=== PATIENT | male | born 1960 | race Caucasian/White ===

== ENCOUNTER 2019-12-01 10:19 | Emergency (ER) | payer MEDICARE, MEDICAID ==
[~2019-12-01] VITALS: Ht 170.2 cm; Wt 81.8 kg
[~2019-12-01 10:19] MED LIST: hydroxyzine; seroquel
[2019-12-01 10:21] VITALS: BP 114/75
[2019-12-01 11:05] LABS: CLARITY,URINE SLIGHTLY CLOUDY (Clear); COLOR,URINE YELLOW (Yellow); GLUCOSE, URINE NEGATIVE (Neg); KETONES,URINE NEGATIVE (Neg); LEUKOCYTE ESTERASE ,URINE MODERATE (Neg); NITRITES, URINE POSITIVE (Neg); OCCULT BLOOD,URINE TRACE-INTACT (Neg); PROTEIN,URINE NEGATIVE (Neg); UROBILINOGEN,URINE 0.2 E.U/dL (0.2-1.0)
[2019-12-01 11:20] LABS: UA COLLECTION TYPE CLN CATCH MIDSTREAM
[2019-12-01 11:28] LABS: BACTERIA,URINE 3+ /HPF (Neg); MUCUS STRANDS FEW /LPF (Neg); RBC,URINE 0-2 /HPF (0-2); SQUAMOUS EPITHELIAL CELL,UR MODERATE /LPF (FEW); WBC CLUMPS,URINE FEW /HPF (NEGATIVE); WBC,URINE 20-30 /HPF (0-4)
[2019-12-01] MEDS ORDERED: aspirin 81mg tab.chew PO ONE (11:35)
[2019-12-01] MEDS ORDERED: CEPH250T PO (11:48)
[2019-12-01] MEDS ORDERED: cephalexin 500mg capsule PO ONE (11:50)
== END 2019-12-01 12:16 | disposition home or self-care (01) ==
LOC: ER 10:19
DX: N39.0 Urinary tract infection, site not specified (principal); R20.0 Anesthesia of skin; F20.9 Schizophrenia, unspecified; Z88.8 Allergy status to other drugs, medicaments and biological substances
CPT/HCPCS: 81001; 87077; 87088; 87186; 99283

== ENCOUNTER 2019-12-07 13:51 | Emergency (ER) | payer MEDICARE, MEDICAID ==
[~2019-12-07] VITALS: Ht 170.2 cm; Wt 81.1 kg
[~2019-12-07 13:51] MED LIST changes: +CEPH250T PO
[2019-12-07] MEDS ORDERED: normal saline 1000ML IV soln IV ONE (14:40)
[2019-12-07] MEDS ORDERED: CefTRIAXone 2gm/D5W 50ml 50 ML IV ONE (14:40)
[2019-12-07 14:54] LABS: CLARITY,URINE SLIGHTLY CLOUDY (Clear); COLOR,URINE YELLOW (Yellow); GLUCOSE, URINE NEGATIVE (Neg); KETONES,URINE >=80 mg/dl (Neg); LEUKOCYTE ESTERASE ,URINE LARGE (Neg); NITRITES, URINE NEGATIVE (Neg); OCCULT BLOOD,URINE TRACE-INTACT (Neg); PROTEIN,URINE NEGATIVE (Neg); UROBILINOGEN,URINE 0.2 E.U/dL (0.2-1.0)
[2019-12-07 14:55] LABS: UA COLLECTION TYPE CLN CATCH MIDSTREAM
[2019-12-07 14:56] LABS: URINE AMPHETAMINE SCREEN NEGATIVE (Neg); URINE BARBITUATE SCREEN NEGATIVE (Neg); URINE BENZODIAZEPINES SCREEN NEGATIVE (Neg); URINE CANNABINOID SCREEN POSITIVE (Neg); URINE COCAINE SCREEN NEGATIVE (Neg); URINE METHADONE SCREEN NEGATIVE (Neg); URINE OPIATE SCREEN NEGATIVE (Neg); URINE PHENCYCLIDINE SCREEN NEGATIVE (Neg)
[2019-12-07 14:59] LABS: MUCUS STRANDS MODERATE /LPF (Neg); SQUAMOUS EPITHELIAL CELL,UR MODERATE /LPF (FEW)
[2019-12-07 15:00] LABS: BACTERIA,URINE 2+ /HPF (Neg); RBC,URINE 0-2 /HPF (0-2); WBC,URINE TNTC /HPF (0-4)
[2019-12-07 15:26] LABS: BASOPHILS # (AUTO) 0.1 X10'3 (0-0.2); BASOPHILS % (AUTO) 0.6 % (0-1); EOSINOPHILS # (AUTO) 0.1 X10'3 (0-0.9); EOSINOPHILS % (AUTO) 0.9 % (0-6); HEMATOCRIT 41.4 % (42.0-52.0); HEMOGLOBIN 13.9 g/dl (14.0-17.9); LYMPHOCYTES # (AUTO) 2.4 X10'3 (1.1-4.8); LYMPHOCYTES % (AUTO) 25.6 % (21-51); MEAN CORPUSCULAR HEMOGLOBIN 30.6 PG (27.0-31.0); MEAN CORPUSCULAR HGB CONC 33.7 g/dL (33.0-36.5); MEAN CORPUSCULAR VOLUME 90.9 FL (78-98); MEAN PLATELET VOLUME 7.9 FL (7.4-10.4); MONOCYTES # (AUTO) 0.7 X10'3 (0-0.9); NEUTROPHILS # (AUTO) 6.3 X10'3 (1.8-7.7); NEUTROPHILS % (AUTO) 65.9 % (42-75); PLATELET COUNT 381 X10'3 (140-440); RED BLOOD COUNT 4.55 X10'6 (4.70-6.10); RED CELL DISTRIBUTION WIDTH 14.5 % (11.5-14.5); WHITE BLOOD COUNT 9.6 X10'3 (4.5-11.0)
[2019-12-07] MEDS ORDERED: HYDROcodone/acetaminophen 5mg/325mg tablet PO ONE (15:35)
--- NOTE | 2019-12-07 15:38 | NUR ---
Medicated for lower abd. pain. Getting IV fluids. Warm blankets provided.
[2019-12-07 15:41] LABS: ALANINE AMINOTRANSFERASE 40 U/L (12-78); ALBUMIN 3.6 G/DL (3.4-5.0); ALBUMIN/GLOBULIN RATIO 0.8 (1.1-1.5); ALKALINE PHOSPHATASE 108 IU/L (46-116); ANION GAP 15 (8-16); ASPARTATE AMINO TRANSFERASE 30 U/L (10-37); BILIRUBIN,TOTAL 0.5 MG/DL (0.1-1.0); BLOOD UREA NITROGEN 10 MG/DL (7-18); CALCIUM 8.9 MG/DL (8.5-10.1); CHLORIDE 101 MMOL/L (99-107); CREATININE 0.83 MG/DL (0.60-1.10); GLUCOSE 170 MG/DL (70-104); POTASSIUM 3.7 MMOL/L (3.5-5.1); SODIUM 139 MMOL/L (135-145); TOTAL CARBON DIOXIDE 23.5 MMOL/L (24-32); TOTAL PROTEIN 8.2 G/DL (6.4-8.2); eGFR > 90 ML/MIN
[2019-12-07 15:51] LABS: ETHANOL < 0.010 GM/DL (0.0-0.010)
--- NOTE | 2019-12-07 18:36 | NUR ---
report given to Briseyda LAWLER
[2019-12-07] MEDS ORDERED: risperiDONE 2mg tablet PO SCH ×2 (21:00→23:15)
[2019-12-07] MEDS ORDERED: mirtazapine 15mg tablet PO SCH ×2 (21:00→23:15)
--- NOTE | 2019-12-07 21:33 | NUR ---
report given to BUCKY Mclaughlin. pt now in [place]
[2019-12-07] MEDS ORDERED: REM30T PO (21:52)
[2019-12-07] MEDS ORDERED: RISP2TAB97 PO (21:52)
--- NOTE | 2019-12-07 22:00 | NUR ---
The patient was moved to bed 25 in the ER. He has been medically cleared and placed on a 5150 hold by [facility]. He stated that he is from the [place] area and he is now living in [place] and his homeless. He stated that he was last hospitalized in [place] one month ago. He stated that he has been off his pyschiatric medications for the past 3 days because he has been on the street. He reports auditory hallucinations telling him "to kill myself. I want to kill myself to make the voices stop...I don't know if I'm possessed with demons or what" His med rec was completed. His IV in his right wrist was discontinued.
[2019-12-07] MEDS ORDERED: acetaminophen 325mg tablet PO PRN (22:40)
--- NOTE | 2019-12-08 01:00 | NUR ---
The patient appears to be sleeping
--- NOTE | 2019-12-08 03:22 | NUR ---
The patient appears to be sleeping
[2019-12-08] MEDS: cephalexin 250mg capsule PO SCH ×2 (05:38→08:17)
--- NOTE | 2019-12-08 05:47 | NUR ---
The patient appears to be sleeping
[2019-12-08 05:52] VITALS: BP 107/71
--- NOTE | 2019-12-08 06:37 | NUR ---
sleeping in bed, laying on his left side, rr even and unlabored.
--- NOTE | 2019-12-08 08:46 | NUR ---
sat up at side of bed, ate breakfast quietly then layed back down. no needs at this time. took meds with no problem.
[2019-12-08] MEDS ORDERED: FLUT16SP2 BOTHNARES (10:35)
[2019-12-08] MEDS ORDERED: RISP0.5T3 PO (10:35)
[2019-12-08] MEDS ORDERED: FLO0.4C PO (10:35)
[2019-12-08] MEDS ORDERED: mirtazapine 15mg tablet PO SCH (21:00)
[2019-12-08] MEDS ORDERED: risperiDONE 2mg tablet PO SCH (21:00)
== END 2019-12-08 09:43 ==
LOC: ER 13:52
DX: R45.851 Suicidal ideations (principal); F29 Unspecified psychosis not due to a substance or known physiological condition; F20.9 Schizophrenia, unspecified; Z88.8 Allergy status to other drugs, medicaments and biological substances; Z79.2 Long term (current) use of antibiotics
CPT/HCPCS: 36415; 80053; 80305; 80320; 81001; 83605; 84145; 84443; 85025; 87040; 96365; 96366; 99285; J0696; J7030

== ENCOUNTER 2019-12-08 08:35 | Inpatient (IN) | payer MEDICARE, MEDICAID ==
[~2019-12-08] VITALS: Ht 170.2 cm; Wt 82.5 kg
[~2019-12-08 08:35] MED LIST changes: -CEPH250T PO; +REM30T PO; +RISP2TAB97 PO; -hydroxyzine; -seroquel
[2019-12-08] MEDS ORDERED: LORazepam 1 MG tablet PO PRN (09:10)
[2019-12-08] MEDS ORDERED: quetiapine 100mg tablet PO PRN (09:10)
[2019-12-08] MEDS ORDERED: acetaminophen 325mg tablet PO PRN (09:10)
[2019-12-08] MEDS ORDERED: loperamide 2mg capsule PO PRN (09:10)
[2019-12-08] MEDS ORDERED: mag hydrox/Alum hydrox/simeth 30ml oral suspension PO PRN (09:10)
[2019-12-08] MEDS ORDERED: NICOTINE POLACRILEX 2 MG LOZENGE BC PRN (09:10)
[2019-12-08] MEDS ORDERED: magnesium hydroxide 30ml (MOM) UD suspension PO PRN (09:10)
[2019-12-08] MEDS ORDERED: traZODone 50mg tablet PO PRN (09:10)
--- NOTE | 2019-12-08 09:15 | NUR ---
ADMIT NOTE: Patient brought up from ER to [facility] via W/C. Belongings were inventoried, skin check performed by 2 RN's. Patient states that he has a past history of cardiac stent, and has hepatitis C. Received pt in bed. Pt. is sleepy and is having a difficult time staying awake during 1:1. Patient states that he lives in a trailer and has become increasingly depressed and lonely. Patient has a long history of schizophrenia and the voice of his keeps telling him to stab himself. Patient states that he would rather than to listen the voice any longer. Patient complains of pain with urination, reports that his penis feels numb, has difficult time with urination and ends up dribbling on himself. Patient is on Keflex for UTI. Patient appears depressed with flat affect. Pt. tends to be withdrawn and isolates to his room. Addendum: 12/08/19 at 1625 by Leidy Weston RN Pt. complaining of pain, with oliguria. Bladder scanned pt for 267 ml of urine.
[2019-12-08] MEDS ORDERED: FLUT16SP2 BOTHNARES (10:35)
[2019-12-08] MEDS ORDERED: RISP0.5T3 PO (10:35)
[2019-12-08] MEDS ORDERED: FLO0.4C PO (10:35)
[2019-12-08 10:44] VITALS: BP 113/69
[2019-12-08] MEDS: cephalexin 250mg capsule PO SCH ×2 (14:09→20:21)
[2019-12-08] MEDS: acetaminophen 325mg tablet PO PRN (16:53)
[2019-12-08 20:00] VITALS: BP 126/78
[2019-12-08] MEDS: risperiDONE 2mg tablet PO SCH (20:21)
[2019-12-08] MEDS: mirtazapine 15mg tablet PO SCH (20:21)
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
[2019-12-09] MEDS: cephalexin 250mg capsule PO SCH ×4 (01:27→20:03)
[2019-12-09 07:10] VITALS: BP 128/83
[2019-12-09 07:13] LABS: CHOL/HDL RATIO 4.2 (0.00-4.99); CHOLESTEROL 164 MG/DL (0-200); HDL CHOLESTEROL 39 MG/DL (35-60); LDL CHOLESTEROL 101 MG/DL (50-100); TRIGLYCERIDES 61 MG/DL (20-135)
[2019-12-09 07:22] LABS: HEMOGLOBIN A1C 5.9 % (4.5-6.2)
[2019-12-09] MEDS: fluticasone nasal spray 16GM bottle NS SCH (08:00)
[2019-12-09] MEDS: tamsulosin 0.4mg capsule PO SCH (08:19)
[2019-12-09] MEDS: nicotine 21mg patch - 24 hr TD SCH (08:19)
[2019-12-09] MEDS: risperiDONE 0.5mg tablet PO SCH (08:19)
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
--- NOTE | 2019-12-09 15:15 | NUR ---
Nursing Progress Note: Legal hold: 5150 Client on an involuntary hold for being a danger to himself Why are they here: The patient is a 59 year old male who self presented to the ER with complaints of UTI symptoms and also told the MD he was having auditory hallucinations and was having suicidal thoughts. He was evaluated by [facility] and was placed on a 5150 hold for being a danger to himself. The patient has a long history of Schizophrenia and has prior inpatient hospitalizations with his most recent hospitalization being in [place] approximately one month ago. He recently relocated to [place], [place] in [facility] where he was living in a trailer on his son's property. He stated that the trailer had no running water or electricity. He began to have constant voices telling him to kill himself and he left the trailer in [place] and he ended up in [place] where he has been staying on the streets for the past 3 days with no long-term and off his psychiatric medications. He began to have increasing suicidal thoughts because he wanted the voices to stop. Assessment What has happened this shift: The patient was isolative to his bed. He appears older than his stated age. His affect was blunted. He was pleasant and cooperative. He stayed in his bed. Reports "numbness and burning" to his waist and mj area, Dr. Bell says he will order a lower back x-ray. pt denies any other physical symptoms or difficulty- able to void okay. reports constipation for no BM x 2 days. S/I, H/I: The patient reports suicidal thoughts to end the voices A/VH: Command auditory hallucinations ADL's: Disheveled Were meds taken: yes Any med S/E the patient denied Mental Status Exam Appearance: Appears disheveled and older than his stated age Eye contact: intermittent Behavior: Withdrawn and isolative Speech: monotone and minimal Mood: Depressed Affect: flat Thought process: difficult to fully assess 2nd to patient's minimal verbal responses but he is able to answer questions appropriately Thought Content: lack of housing, wanting to have the voices stop and wanted to kill himself to get rid of the voices Cognition: Alert, oriented to place, person Insight: Impaired Judgment: Impaired Interventions PRN's used: none Therapeutic interventions: One to one with the patient to assess severity of disordered thoughts and self harm risk. Educated to medications. Restraints/seclusion/emergency medication: NA Justification of Continued Inpatient Treatment: The patient continues to have auditory hallucinations that make him feel overwhelmed and suicidal. He is new to the area and lacks housing and person resources or a viable discharge plan.
[2019-12-09 19:00] VITALS: BP 110/79
[2019-12-09] MEDS: acetaminophen 325mg tablet PO PRN (19:22)
[2019-12-09] MEDS: risperiDONE 2mg tablet PO SCH (20:02)
[2019-12-09] MEDS: mirtazapine 15mg tablet PO SCH (20:03)
--- NOTE | 2019-12-10 02:26 | NUR ---
Nursing Progress Note: Legal hold: 5150 Client on an involuntary hold for DTS Report received from Jamia LAWLER with use of SBAR. Why are they here: The patient is a 59 year old male who self presented to the ER with complaints of UTI symptoms and also told the MD he was having auditory hallucinations and was having suicidal thoughts. He was evaluated by [facility] and was placed on a 5150 hold for being a danger to himself. The patient has a long history of Schizophrenia and has prior inpatient hospitalizations with his most recent hospitalization being in [place] approximately one month ago. He recently relocated to [place] in [facility] where he was living in a trailer on his son's property. He stated that the trailer had no running water or electricity. He began to have constant voices telling him to kill himself and he left the trailer in [place] and he ended up in [place] where he has been staying on the streets for the past 3 days with no halfway and off his psychiatric medications. He began to have increasing suicidal thoughts because he wanted the voices to stop. Assessment What has happened this shift: Patient laying in bed at the beginning of shift. Pleasant and cooperative with all care; compliant with medication. PRN Tylenol provided for ALMARAZ with positive effect. Denies SI, HI, A/VH this shift but endorses mild depression. He continues to endorse pain with urination; patient encouraged to drink water and he continues ABx with no ASE observed or reported. Patient was observed briefly sitting in group eating snack and watching a movie before going back to bed. S/I, H/I: Denies A/VH: Denies; does not appear internally preoccupied ADL's: Independent Were meds taken: Yes Any med S/E: None observed or reported Mental Status Exam Appearance: Disheveled, wearing green unit scrubs. Eye contact: Fair Behavior: Isolative Speech: Clear, steady rate/rhythm, soft tone, minimal Mood: Depressed Affect: Constricted Thought process: Linear Thought Content: Depression, UTI Cognition: Alert, oriented to place, person Insight: Fair Judgment: Poor Interventions PRN's used: Tylenol Therapeutic interventions: One to one with the patient to assess severity of disordered thoughts and self harm risk. Educated to medications. Restraints/seclusion/emergency medication: NA Justification of Continued Inpatient Treatment: The patient continues to have auditory hallucinations that make him feel overwhelmed and suicidal. He is new to the area and lacks housing and person resources or a viable discharge plan.
[2019-12-10] MEDS: cephalexin 250mg capsule PO SCH ×4 (03:00→20:03)
[2019-12-10 07:54] VITALS: BP 115/81
[2019-12-10] MEDS: tamsulosin 0.4mg capsule PO SCH (08:33)
[2019-12-10] MEDS: nicotine 21mg patch - 24 hr TD SCH (08:33)
[2019-12-10] MEDS: risperiDONE 0.5mg tablet PO SCH (08:33)
[2019-12-10] MEDS: fluticasone nasal spray 16GM bottle NS SCH (08:34)
--- NOTE | 2019-12-10 08:44 | NUR ---
[facility] REFERRAL Completed and faxed CR referral. Provided Gil with phone numbers to call [facility] and [facility] to change his [facility] to [place]. PETTY Fernandez
--- NOTE | 2019-12-10 17:32 | NUR ---
Nursing Progress Note: Legal hold: 5150 Client on an involuntary hold for DTS Report received from Cecilia Piper RN with use of SBAR. Why are they here: The patient is a 59 year old male who self presented to the ER with complaints of UTI symptoms and also told the MD he was having auditory hallucinations and was having suicidal thoughts. He was evaluated by [facility] and was placed on a 5150 hold for being a danger to himself. The patient has a long history of Schizophrenia and has prior inpatient hospitalizations with his most recent hospitalization being in [place] approximately one month ago. He recently relocated to [place] in [facility] where he was living in a trailer on his son's property. He stated that the trailer had no running water or electricity. He began to have constant voices telling him to kill himself and he left the trailer in [place] and he ended up in [place] where he has been staying on the streets for the past 3 days with no custodial and off his psychiatric medications. He began to have increasing suicidal thoughts because he wanted the voices to stop. Assessment What has happened this shift: Pt is up out with peers socializing most of the shift. He went outside with the group. He was observed sitting watching TV and talking to his peers in the community room. He assisted the Evon BENJAMIN w/switching his [facility] He talked about going to the [facility] at discharge. S/I, H/I: Denies A/VH: Denies ADL's: Independent Were meds taken: Yes Any med S/E: None observed or reported Mental Status Exam Appearance: Disheveled, wearing green unit scrubs. Eye contact: Fair Behavior: Observed out w/peers on the unit Speech: Clear, steady rate/rhythm, audible Mood: Euthymic Affect: Congruent w/mood Thought process: Linear Thought Content: Housing in the future Cognition: A/Ox4 Insight: Fair Judgment: Poor Interventions PRN's used: N/A Therapeutic interventions: Morning 1:1 assessment, provided therapeutic communication and active listening, medication administration/education/monitoring, encouraged to come out into the group and socialized, encouraged to shower, q 15min safety checks. Restraints/seclusion/emergency medication: NA Justification of Continued Inpatient Treatment: The patient continues to have auditory hallucinations that make him feel overwhelmed and suicidal. He is new to the area and lacks housing and person resources or a viable discharge plan.
[2019-12-10 19:00] VITALS: BP 112/81
[2019-12-10] MEDS: acetaminophen 325mg tablet PO PRN (19:15)
[2019-12-10] MEDS: risperiDONE 2mg tablet PO SCH (20:03)
[2019-12-10] MEDS: mirtazapine 15mg tablet PO SCH (20:03)
[2019-12-11] MEDS: cephalexin 250mg capsule PO SCH ×4 (03:06→21:26)
--- NOTE | 2019-12-11 04:56 | NUR ---
Nursing Progress Note: Legal hold: 5150 Client on an involuntary hold for DTS Report received from Jamia LAWLER with use of SBAR. Why are they here: The patient is a 59 year old male who self presented to the ER with complaints of UTI symptoms and also told the MD he was having auditory hallucinations and was having suicidal thoughts. He was evaluated by [facility] and was placed on a 5150 hold for being a danger to himself. The patient has a long history of Schizophrenia and has prior inpatient hospitalizations with his most recent hospitalization being in [place] approximately one month ago. He recently relocated to [place] in [facility] where he was living in a trailer on his son's property. He stated that the trailer had no running water or electricity. He began to have constant voices telling him to kill himself and he left the trailer in [place] and he ended up in [place] where he has been staying on the streets for the past 3 days with no nursing home and off his psychiatric medications. He began to have increasing suicidal thoughts because he wanted the voices to stop. Assessment What has happened this shift: Patient visible on the unit at the beginning of shift. Pleasant and cooperative with all care; compliant with medication. PRN Tylenol provided for ALMARAZ with positive effect. Patient reports continuing pain with urination r/t UTI. Patient remains on ABx with no ASE and encouraged by staff to drink plenty of fluids. Patient denies SI, HI, A/VH this shift. He reports possible discharge to [facility]. He participated in HS snack in the group room before going to bed. S/I, H/I: Denies A/VH: Denies; does not appear internally preoccupied ADL's: Independent Were meds taken: Yes Any med S/E: None observed or reported Mental Status Exam Appearance: Disheveled, wearing green unit scrubs. Eye contact: Fair Behavior: Watching TV, socializing with peers Speech: Clear, steady rate/rhythm, soft tone, minimal Mood: "OK" Affect: Constricted Thought process: Linear Thought Content: Possible d/c to [facility] Cognition: Alert, oriented to place, person Insight: Fair Judgment: Fair Interventions PRN's used: Tylenol Therapeutic interventions: One to one with the patient to assess severity of disordered thoughts and self harm risk. Educated to medications. Restraints/seclusion/emergency medication: NA Justification of Continued Inpatient Treatment: The patient continues to have auditory hallucinations that make him feel overwhelmed and suicidal. He is new to the area and lacks housing and person resources or a viable discharge plan.
[2019-12-11] MEDS: tamsulosin 0.4mg capsule PO SCH (07:37)
[2019-12-11] MEDS: risperiDONE 0.5mg tablet PO SCH (07:37)
[2019-12-11] MEDS: nicotine 21mg patch - 24 hr TD SCH (07:38)
[2019-12-11] MEDS: acetaminophen 325mg tablet PO PRN (07:38)
[2019-12-11 07:40] VITALS: BP 114/84
[2019-12-11] MEDS: fluticasone nasal spray 16GM bottle NS SCH (08:00)
--- NOTE | 2019-12-11 17:17 | NUR ---
Nursing Progress Note: Legal hold: 5150 Client on an involuntary hold for DTS Report received from Cecilia Piper RN with use of SBAR. Why are they here: The patient is a 59 year old male who self presented to the ER with complaints of UTI symptoms and also told the MD he was having auditory hallucinations and was having suicidal thoughts. He was evaluated by [facility] and was placed on a 5150 hold for being a danger to himself. The patient has a long history of Schizophrenia and has prior inpatient hospitalizations with his most recent hospitalization being in [place] approximately one month ago. He recently relocated to [place] in [facility] where he was living in a trailer on his son's property. He stated that the trailer had no running water or electricity. He began to have constant voices telling him to kill himself and he left the trailer in [place] and he ended up in [place] where he has been staying on the streets for the past 3 days with no alf and off his psychiatric medications. He began to have increasing suicidal thoughts because he wanted the voices to stop. Assessment What has happened this shift: Received pt. sleeping in bed. Pt. awakens for medications and breakfast. Pt complains of a headache and was given Tylenol with good effect. Pt. does complain of pain in his genital area from UTI, he states that it is slowly resolving. Pt. did attend group in the a.m. Patient is mostly concerned about going to [facility] upon discharge. S/I, H/I: Denies A/VH: Denies ADL's: Independent Were meds taken: Yes Any med S/E: None observed or reported Mental Status Exam Appearance: Disheveled, wearing green unit scrubs. Eye contact: Fair Behavior: Calm and cooperative. Speech: Clear, minimal. Mood: Euthymic Affect: Congruent w/mood Thought process: Linear Thought Content: Discharging to [facility]. Cognition: A/Ox4 Insight: Fair Judgment: Poor Interventions PRN's used: N/A Therapeutic interventions: Morning 1:1 assessment, provided therapeutic communication and active listening, medication administration/education/monitoring, encouraged to come out into the group and socialized, encouraged to shower, q 15min safety checks. Restraints/seclusion/emergency medication: NA Justification of Continued Inpatient Treatment: The patient continues to have auditory hallucinations that make him feel overwhelmed and suicidal. He is new to the area and lacks housing and person resources or a viable discharge plan.
[2019-12-11 20:00] VITALS: BP 100/66
[2019-12-11] MEDS: mirtazapine 15mg tablet PO SCH (21:26)
[2019-12-11] MEDS: risperiDONE 2mg tablet PO SCH (21:26)
[2019-12-12] MEDS: cephalexin 250mg capsule PO SCH ×4 (03:26→20:34)
--- NOTE | 2019-12-12 05:41 | NUR ---
Nursing Progress Note: Legal hold: VOL Client on an voluntary Report received from Jamia LAWLER with use of SBAR. Why are they here: The patient is a 59 year old male who self presented to the ER with complaints of UTI symptoms and also told the MD he was having auditory hallucinations and was having suicidal thoughts. He was evaluated by [facility] and was placed on a 5150 hold for being a danger to himself. The patient has a long history of Schizophrenia and has prior inpatient hospitalizations with his most recent hospitalization being in [place] approximately one month ago. He recently relocated to [place] in [facility] where he was living in a trailer on his son's property. He stated that the trailer had no running water or electricity. He began to have constant voices telling him to kill himself and he left the trailer in [place] and he ended up in [place] where he has been staying on the streets for the past 3 days with no intermediate and off his psychiatric medications. He began to have increasing suicidal thoughts because he wanted the voices to stop. Assessment What has happened this shift: Patient watching TV in group room at the beginning of shift. Pleasant and cooperative with all care, compliant with medication. Patient continues ABx for UTI and continues to endorse discomfort with urination. Patient reports drinking water throughout the day. He denies SI, HI, A/VH and does not appear to be responding to internal stimuli. He continues to look forward to possible D/C to [facility]. S/I, H/I: Denies A/VH: Denies; does not appear internally preoccupied ADL's: Independent Were meds taken: Yes Any med S/E: None observed or reported Mental Status Exam Appearance: Disheveled, wearing green unit scrubs. Eye contact: Fair Behavior: Watching TV, socializing with peers Speech: Clear, steady rate/rhythm, soft tone, minimal Mood: Euthymic Affect: Congruent Thought process: Linear Thought Content: Possible d/c to [facility] Cognition: Alert, oriented to place, person Insight: Fair Judgment: Fair Interventions PRN's used: None Therapeutic interventions: One to one with the patient to assess severity of disordered thoughts and self harm risk. Educated to medications. Restraints/seclusion/emergency medication: NA Justification of Continued Inpatient Treatment: The patient continues to have auditory hallucinations that make him feel overwhelmed and suicidal. He is new to the area and lacks housing and person resources or a viable discharge plan.
[2019-12-12 07:47] VITALS: BP 114/77
[2019-12-12] MEDS: risperiDONE 0.5mg tablet PO SCH (07:48)
[2019-12-12] MEDS: nicotine 21mg patch - 24 hr TD SCH (07:48)
[2019-12-12] MEDS: tamsulosin 0.4mg capsule PO SCH (07:48)
[2019-12-12] MEDS: acetaminophen 325mg tablet PO PRN ×2 (07:49→20:37)
[2019-12-12] MEDS: fluticasone nasal spray 16GM bottle NS SCH (07:50)
--- NOTE | 2019-12-12 10:24 | NUR ---
Initial: Pt admit w/ SI and schizophrenia PO 100% avg regular diet meeting needs. Receiving remeron. [facility] 12/08. No nutrition concerns at this time. Will continue to monitor. Rec: 1. continue regular diet 2. bowel care as needed 3. wt per rx Addendum: 12/12/19 at [address] Amended: Links added.
--- NOTE | 2019-12-12 17:41 | NUR ---
Nursing Progress Note: Legal hold: Voluntary Client on an involuntary hold for DTS Report received from RN with use of SBAR. Why are they here: The patient is a 59 year old male who self-presented to the ER with complaints of UTI symptoms and also told the MD he was having auditory hallucinations and was having suicidal thoughts. He was evaluated by [facility] and was placed on a 5150 hold for being a danger to himself. The patient has a long history of Schizophrenia and has prior inpatient hospitalizations with his most recent hospitalization being in [place] approximately one month ago. He recently relocated to [place], [place] in [facility] where he was living in a trailer on his son's property. He stated that the trailer had no running water or electricity. He began to have constant voices telling him to kill himself and he left the trailer in [place] and he ended up in [place] where he has been staying on the streets for the past 3 days with no mcc and off his psychiatric medications. He began to have increasing suicidal thoughts because he wanted the voices to stop. Assessment What has happened this shift: Received pt sleeping in bed at shift change. Patient reports that he normally has sinus headaches in the morning and took Tylenol and Flonase with good relief of symptoms. Patient continues to complain of pain with urination, discussed with Alva Martínez Pt. up in the group room most of the day, did walk the hallways for a short time. Patient is pleasant and cooperative with all care. Takes medications without incident. Patient is looking forward to possibly going to [facility]. S/I, H/I: Denies A/VH: Denies ADL's: Independent, needs prompting. Were meds taken: Yes Any med S/E: None observed or reported Mental Status Exam Appearance: Disheveled, wearing green unit scrubs. Eye contact: Fair Behavior: Calm and cooperative. Speech: Clear, minimal. Mood: Euthymic Affect: Congruent w/mood Thought process: Linear Thought Content: Discharging to CR. UTI pain. Cognition: A/Ox4 Insight: Fair Judgment: Poor Interventions PRN's used: N/A Therapeutic interventions: Morning 1:1 assessment, provided therapeutic communication and active listening, medication administration/education/monitoring, encouraged to come out into the group and socialized, encouraged to shower, q 15min safety checks. Restraints/seclusion/emergency medication: NA Justification of Continued Inpatient Treatment: The patient continues to have auditory hallucinations that make him feel overwhelmed and suicidal. He is new to the area and lacks housing and person resources or a viable discharge plan.
[2019-12-12 20:00] VITALS: BP 94/69
[2019-12-12] MEDS: risperiDONE 2mg tablet PO SCH (20:34)
[2019-12-12] MEDS: mirtazapine 15mg tablet PO SCH (20:34)
[2019-12-13] MEDS: cephalexin 250mg capsule PO SCH ×4 (02:30→20:10)
--- NOTE | 2019-12-13 05:02 | NUR ---
Nursing Progress Note: Legal hold: VOL Client on an voluntary Report received from Jamia LAWLER with use of SBAR. Why are they here: The patient is a 59 year old male who self presented to the ER with complaints of UTI symptoms and also told the MD he was having auditory hallucinations and was having suicidal thoughts. He was evaluated by [facility] and was placed on a 5150 hold for being a danger to himself. The patient has a long history of Schizophrenia and has prior inpatient hospitalizations with his most recent hospitalization being in [place] approximately one month ago. He recently relocated to [place], [place] in [facility] where he was living in a trailer on his son's property. He stated that the trailer had no running water or electricity. He began to have constant voices telling him to kill himself and he left the trailer in [place] and he ended up in [place] where he has been staying on the streets for the past 3 days with no care home and off his psychiatric medications. He began to have increasing suicidal thoughts because he wanted the voices to stop. Assessment What has happened this shift: Patient laying in bed at the beginning of shift and later observed on the unit. Pleasant and cooperative with all care; compliant with medication. PRN Tylenol provided for ALMARAZ with positive effect. Continues to c/o discomfort with urination adding "it feels strange," remains on PO ABx. Waiting on [facility] interview. S/I, H/I: Denies A/VH: Denies ADL's: Independent Were meds taken: Yes Any med S/E: None observed or reported Mental Status Exam Appearance: Disheveled, wearing green unit scrubs. Eye contact: Fair Behavior: Watching TV, socializing with peers Speech: Clear, steady rate/rhythm, soft tone, minimal Mood: Euthymic Affect: Congruent Thought process: Linear Thought Content: Continuing discomfort with urination Cognition: Alert, oriented to place, person Insight: Fair Judgment: Fair Interventions PRN's used: Tylenol Therapeutic interventions: One to one with the patient to assess severity of disordered thoughts and self harm risk. Educated to medications. Restraints/seclusion/emergency medication: NA Justification of Continued Inpatient Treatment: The patient continues to have auditory hallucinations that make him feel overwhelmed and suicidal. He is new to the area and lacks housing and person resources or a viable discharge plan.
[2019-12-13 07:50] VITALS: BP 101/71
[2019-12-13] MEDS: risperiDONE 0.5mg tablet PO SCH (08:33)
[2019-12-13] MEDS: tamsulosin 0.4mg capsule PO SCH (08:33)
[2019-12-13] MEDS: nicotine 21mg patch - 24 hr TD SCH (08:34)
[2019-12-13] MEDS: fluticasone nasal spray 16GM bottle NS SCH (09:45)
--- NOTE | 2019-12-13 14:11 | NUR ---
[facility] INTERVIEW Assisted Gil with [facility] interview with Kam via [employer]. Interview went well and he likely will be able to go to [facility] tomorrow. Cindy [facility], will confirm later today with film writer. Gil will need a chest x-ray to rule out TB as it is too late to do a PPD. He will also need a 30 day supply of medications in order to discharge to [facility]. PETTY Fernandez
[2019-12-13] MEDS ORDERED: TRAZ-251 PO (14:27)
[2019-12-13] MEDS ORDERED: FLUT16SP18 NS (14:27)
[2019-12-13] MEDS ORDERED: FLO0.4C PO (14:27)
[2019-12-13] MEDS ORDERED: NICO-687 TD (14:27)
[2019-12-13] MEDS ORDERED: RISP0.5T3 PO (14:27)
[2019-12-13] MEDS ORDERED: CEPH250C PO (14:27)
[2019-12-13] MEDS ORDERED: RISP2TAB3 PO (14:27)
[2019-12-13] MEDS ORDERED: REM30T PO (14:27)
--- NOTE | 2019-12-13 16:21 | NUR ---
Nursing Progress Note: Legal hold: VOL Client on an voluntary Report received from BUCKY Acosta with use of SBAR. Why are they here: self presented to the ER with complaints of UTI symptoms and auditory hallucinations w/suicidal thoughts. The patient has a long history of Schizophrenia and has prior inpatient hospitalizations with his most recent hospitalization being in [place] approximately one month ago. Assessment What has happened this shift: Pt up and observed socializing with peers, watching TV and having his meals with everyone. He is medication compliant. He is waiting to be interviewed by [facility]. Pt states he needs housing that he cannot take his medications living on the streets. He continues c/o pain on urination. He is taking Keflex. Pt on Risperdal to treat his mental illness. S/I, H/I: Denies A/VH: Yes ADL's: Independent Were meds taken: Yes Any med S/E: None observed or reported Mental Status Exam Appearance: Disheveled, wearing green unit scrubs. Eye contact: Fair Behavior: Watching TV, socializing with peers Speech: Clear, regular rate/rhythm Mood: Euthymic Affect: Congruent Thought process: Linear Thought Content: Continuing discomfort with urination Cognition: A/Ox2; appears confused at times Insight: Fair Judgment: Fair Interventions PRN's used: N/A Therapeutic interventions: 1:1 morning physical and MSE assessment, therapeutic communication w/active listening, medication administration/education/monitoring, encouraged to shower, eat in community room, monitored q 15min for safety checks. Restraints/seclusion/emergency medication: NA Justification of Continued Inpatient Treatment: The patient continues to have auditory hallucinations that make him feel overwhelmed and suicidal. He is new to the area and lacks housing and person resources or a viable discharge plan.
[2019-12-13] MEDS: acetaminophen 325mg tablet PO PRN (19:19)
[2019-12-13 19:44] VITALS: BP 123/76
[2019-12-13] MEDS: mirtazapine 15mg tablet PO SCH (20:10)
[2019-12-13] MEDS: risperiDONE 2mg tablet PO SCH (20:10)
--- NOTE | 2019-12-14 00:42 | NUR ---
Nursing Progress Note: Legal hold: VOL Client on an voluntary Report received from BUCKY Blandon with use of SBAR. Why are they here: self presented to the ER with complaints of UTI symptoms and auditory hallucinations w/suicidal thoughts. The patient has a long history of Schizophrenia and has prior inpatient hospitalizations with his most recent hospitalization being in [place] approximately one month ago. Assessment What has happened this shift: pt was sitting in group room watching tv at change of shift. He denies depression, he is looking forward to moving to the [facility] tommorow. He denies s/i, continues to report constipation/hard stool was given Milk of Mag this evening. States he tried prune juice but it didn't help. Pt also c/o 7/ ALMARAZ and was given tylenol prn. Pt reports tylenol "worked". S/I, H/I: Denies A/VH: Yes ADL's: Independent Were meds taken: Yes Any med S/E: None observed or reported Mental Status Exam Appearance: Disheveled, wearing green unit scrubs. Eye contact: Fair Behavior: Watching TV, socializing with peers Speech: Clear, regular rate/rhythm Mood: Euthymic Affect: Congruent Thought process: Linear, future oriented Thought Content: Continuing discomfort with urination Cognition: A/Ox2; appears confused at times Insight: Fair Judgment: Fair Interventions PRN's used: N/A Therapeutic interventions: 1:1 morning physical and MSE assessment, therapeutic communication w/active listening, medication administration/education/monitoring, encouraged to shower, eat in community room, monitored q 15min for safety checks. Restraints/seclusion/emergency medication: NA Justification of Continued Inpatient Treatment: The patient continues to have auditory hallucinations that make him feel overwhelmed and suicidal. He is new to the area and lacks housing and person resources or a viable discharge plan.
[2019-12-14] MEDS: cephalexin 250mg capsule PO SCH ×2 (02:21→08:12)
[2019-12-14 07:53] VITALS: BP 108/66
[2019-12-14] MEDS: risperiDONE 0.5mg tablet PO SCH (08:12)
[2019-12-14] MEDS: fluticasone nasal spray 16GM bottle NS SCH (08:12)
[2019-12-14] MEDS: tamsulosin 0.4mg capsule PO SCH (08:12)
[2019-12-14] MEDS: nicotine 21mg patch - 24 hr TD SCH (08:14)
--- NOTE | 2019-12-14 10:26 | NUR ---
ACCEPTED AT [facility] Gil has been accepted at [facility]. Assisted him with picking up his medications from [facility] pharmacy in order for him to get admitted to [facility]. Completed the rest of the necessary paperwork and faxed to [facility]. PETTY Fernandez
--- NOTE | 2019-12-14 14:00 | NUR ---
DISCHARGE NOTE: Pt denied depression, SI/AH/VH today. He stated that he was ready for discharge. Pt was discharged to the [facility] at 1315, picked up by [facility] vending route driver. He ambulated off the unit accompanied by the community health nursing director, all belongings returned, filled prescriptions and pt's own meds handed to the vending route driver. Pt expressed understanding of discharge plan.
== END 2019-12-14 13:15 | disposition short-term general hospital (02) | DRG 885 ==
LOC: ADULT MH 08:35
PROVIDERS: ADMIT Psychiatry & Neurology Psychiatry; ATTEND Psychiatry & Neurology Psychiatry
DX: F29 Unspecified psychosis not due to a substance or known physiological condition (principal); R45.851 Suicidal ideations; N39.0 Urinary tract infection, site not specified; F12.90 Cannabis use, unspecified, uncomplicated; R31.9 Hematuria, unspecified; F17.210 Nicotine dependence, cigarettes, uncomplicated; I25.10 Atherosclerotic heart disease of native coronary artery without angina pectoris; N40.0 Benign prostatic hyperplasia without lower urinary tract symptoms; Z59.0 Homelessness; Z80.3 Family history of malignant neoplasm of breast; Z88.8 Allergy status to other drugs, medicaments and biological substances; Z79.899 Other long term (current) drug therapy; Z95.5 Presence of coronary angioplasty implant and graft; Z71.6 Tobacco abuse counseling
CPT/HCPCS: 36415; 71045; 72100; 80053; 80061; 80305; 80320; 81001; 83036; 83605; 84145; 84443; 85025; 87040; 87081; 99285

== ENCOUNTER 2020-01-07 04:15 | Emergency (ER) | payer MEDICARE, MEDICAID ==
[~2020-01-07] VITALS: Ht 170.2 cm; Wt 86.4 kg
[~2020-01-07 04:15] MED LIST changes: +CEPH250C PO; +FLO0.4C PO; +FLUT16SP18 NS; +NICO-687 TD; +RISP0.5T3 PO; +RISP2TAB3 PO; -RISP2TAB97 PO; +TRAZ-251 PO
[2020-01-07] MEDS ORDERED: risperiDONE 0.5mg tablet PO ONE (04:55)
[2020-01-07] MEDS ORDERED: RISP0.5T3 PO (04:56)
[2020-01-07] MEDS ORDERED: RISP2TAB3 PO (04:56)
[2020-01-07 05:12] LABS: CLARITY,URINE CLOUDY (Clear); GLUCOSE, URINE NEGATIVE (Neg); KETONES,URINE 15 mg/dl (Neg); LEUKOCYTE ESTERASE ,URINE MODERATE (Neg); NITRITES, URINE NEGATIVE (Neg); OCCULT BLOOD,URINE TRACE-INTACT (Neg); PROTEIN,URINE 30 mg/dl (Neg); UROBILINOGEN,URINE 0.2 E.U/dL (0.2-1.0)
[2020-01-07 05:13] LABS: COLOR,URINE DARK YELLOW (Yellow); UA COLLECTION TYPE CLN CATCH MIDSTREAM
[2020-01-07 05:31] LABS: BACTERIA,URINE 2+ /HPF (Neg); MUCUS STRANDS FEW /LPF (Neg); RBC,URINE 0-2 /HPF (0-2); SQUAMOUS EPITHELIAL CELL,UR MODERATE /LPF (FEW); WBC CLUMPS,URINE MODERATE /HPF (NEGATIVE); WBC,URINE TNTC /HPF (0-4)
[2020-01-07] MEDS ORDERED: normal saline 1000ML IV soln IVB ONE (05:40)
[2020-01-07] MEDS ORDERED: CefTRIAXone 2gm/D5W 50ml 50 ML IV ONE (05:45)
[2020-01-07 07:04] LABS: BASOPHILS # (AUTO) 0.1 X10'3 (0-0.2); BASOPHILS % (AUTO) 0.9 % (0-1); EOSINOPHILS # (AUTO) 0.3 X10'3 (0-0.9); EOSINOPHILS % (AUTO) 3.9 % (0-6); HEMOGLOBIN 14.3 g/dl (14.0-17.9); LYMPHOCYTES # (AUTO) 2.4 X10'3 (1.1-4.8); LYMPHOCYTES % (AUTO) 31.3 % (21-51); MEAN CORPUSCULAR HEMOGLOBIN 30.5 PG (27.0-31.0); MEAN CORPUSCULAR HGB CONC 34.1 g/dL (33.0-36.5); MEAN CORPUSCULAR VOLUME 89.6 FL (78-98); MEAN PLATELET VOLUME 7.7 FL (7.4-10.4); MONOCYTES # (AUTO) 0.9 X10'3 (0-0.9); MONOCYTES % (AUTO) 11.4 % (2-12); NEUTROPHILS # (AUTO) 4.1 X10'3 (1.8-7.7); NEUTROPHILS % (AUTO) 52.5 % (42-75); PLATELET COUNT 300 X10'3 (140-440); RED BLOOD COUNT 4.69 X10'6 (4.70-6.10); RED CELL DISTRIBUTION WIDTH 14.8 % (11.5-14.5); WHITE BLOOD COUNT 7.8 X10'3 (4.5-11.0)
--- NOTE | 2020-01-07 07:12 | NUR ---
pt belongings list completed; belongings in the [facility]
[2020-01-07 07:15] LABS: PARTIAL THROMBOPLASTIN TIME 26 SECONDS (22-32)
[2020-01-07 07:17] LABS: ALANINE AMINOTRANSFERASE 48 U/L (12-78); ALBUMIN 4.2 G/DL (3.4-5.0); ALBUMIN/GLOBULIN RATIO 0.9 (1.1-1.5); ALKALINE PHOSPHATASE 107 IU/L (46-116); ANION GAP 11 (8-16); ASPARTATE AMINO TRANSFERASE 20 U/L (10-37); BILIRUBIN,TOTAL 0.6 MG/DL (0.1-1.0); BLOOD UREA NITROGEN 28 MG/DL (7-18); BUN/CREATININE RATIO 36.4 (5.4-32.0); CALCIUM 9.6 MG/DL (8.5-10.1); CHLORIDE 103 MMOL/L (99-107); CREATININE 0.77 MG/DL (0.60-1.10); GLUCOSE 94 MG/DL (70-104); POTASSIUM 3.8 MMOL/L (3.5-5.1); SODIUM 139 MMOL/L (135-145); TOTAL PROTEIN 8.7 G/DL (6.4-8.2); eGFR > 90 ML/MIN
[2020-01-07] MEDS ORDERED: CEPH250T PO (07:33)
--- NOTE | 2020-01-07 08:55 | NUR ---
Pt was cooperative with staff up to the point he was informed of a pending dc. He became hostile and notably less cooperative. Pt refused to accept the DC scripts and POC data provided along with food offerings. He also refused to sign DC paperwork.
[2020-01-07 09:03] VITALS: BP 107/76
== END 2020-01-07 09:07 | disposition home or self-care (01) ==
LOC: ER 04:15
DX: R44.0 Auditory hallucinations (principal); R44.1 Visual hallucinations; N39.0 Urinary tract infection, site not specified; F12.90 Cannabis use, unspecified, uncomplicated; Z88.8 Allergy status to other drugs, medicaments and biological substances; Z79.2 Long term (current) use of antibiotics; Z79.899 Other long term (current) drug therapy
CPT/HCPCS: 36415; 80053; 81001; 83605; 84145; 85025; 85610; 85730; 87040; 87077; 87088; 87186; 96365; 99284; J0696; J7030

== ENCOUNTER 2023-10-08 01:35 | Emergency (ER) | payer MEDICARE, MEDICAID ==
[~2023-10-08] VITALS: Ht 170.2 cm; Wt 60.0 kg
[~2023-10-08 01:35] MED LIST changes: +FLUT16SP NS; -FLUT16SP18 NS; -RISP0.5T3 PO; +RISP0.5T80 PO; -RISP2TAB3 PO; +RISP2TAB85 PO
[2023-10-08 01:43] VITALS: TEMP 97.9
[2023-10-08 03:52] VITALS: BP 107/86; PULSE 59; RESP 16; O2SAT 97
[2023-10-09] MEDS ORDERED: CLOP75TA34 PO (15:41)
[2023-10-09] MEDS ORDERED: CARV3.122 PO (15:41)
[2023-10-09] MEDS ORDERED: ROSU10TA2 PO (15:41)
[2023-10-09] MEDS ORDERED: REM30T PO (15:41)
[2023-10-09] MEDS ORDERED: FLO0.4C PO (15:41)
== END 2023-10-08 06:02 | disposition left against medical advice (07) ==
LOC: ER 01:35
DX: F15.10 Other stimulant abuse, uncomplicated (principal); Z59.00 Homelessness unspecified; Z88.8 Allergy status to other drugs, medicaments and biological substances
CPT/HCPCS: 99283

== ENCOUNTER 2023-10-09 14:55 | Inpatient (IN) | payer MEDICARE, MEDICAID ==
[~2023-10-09] VITALS: Ht 172.7 cm; Wt 67.5 kg
[~2023-10-09 14:55] MED LIST changes: +RISP-32 PO; -RISP2TAB85 PO
[2023-10-09] MEDS ORDERED: ROSU10TA2 PO (15:41)
[2023-10-09] MEDS ORDERED: CLOP75TA34 PO (15:41)
[2023-10-09] MEDS ORDERED: FLO0.4C PO (15:41)
[2023-10-09] MEDS ORDERED: REM30T PO (15:41)
[2023-10-09] MEDS ORDERED: CARV3.122 PO (15:41)
[2023-10-09] MEDS: LORazepam 2 mg/ml vial IM ONE (17:10)
[2023-10-09] MEDS: diphenhydrAMINE 50 mg/ml inj IM ONE (17:10)
[2023-10-09] MEDS: haloperidol lactate 5mg/ml inj IM ONE (17:10)
[2023-10-09 18:11] LABS: BASOPHILS % (AUTO) 0.7 % (0-1); EOSINOPHILS # (AUTO) 0.4 X10'3 (0-0.9); HEMATOCRIT 37.8 % (42.0-52.0); HEMOGLOBIN 12.4 g/dl (14.0-17.9); LYMPHOCYTES # (AUTO) 1.7 X10'3 (1.1-4.8); LYMPHOCYTES % (AUTO) 27.6 % (21-51); MEAN CORPUSCULAR HEMOGLOBIN 29.7 PG (27.0-31.0); MEAN CORPUSCULAR HGB CONC 32.7 g/dL (33.0-36.5); MEAN CORPUSCULAR VOLUME 90.8 FL (78-98); MEAN PLATELET VOLUME 7.7 FL (7.4-10.4); MONOCYTES # (AUTO) 0.8 X10'3 (0-0.9); MONOCYTES % (AUTO) 13.9 % (2-12); NEUTROPHILS # (AUTO) 3.2 X10'3 (1.8-7.7); NEUTROPHILS % (AUTO) 51.8 % (42-75); PLATELET COUNT 307 X10'3 (140-440); RED BLOOD COUNT 4.17 X10'6 (4.70-6.10); RED CELL DISTRIBUTION WIDTH 13.9 % (11.5-14.5); WHITE BLOOD COUNT 6.1 X10'3 (4.5-11.0)
[2023-10-09 18:46] LABS: ALBUMIN 3.6 G/DL (3.4-5.0); ANION GAP 12 (8-16); BLOOD UREA NITROGEN 15 MG/DL (7-18); BUN/CREATININE RATIO 22.1 (10.0-20.0); CALCIUM 8.9 MG/DL (8.5-10.1); CHLORIDE 99 MMOL/L (99-107); CREATININE 0.68 MG/DL (0.60-1.10); GLUCOSE 90 MG/DL (70-104); POTASSIUM 3.3 MMOL/L (3.5-5.1); SODIUM 137 MMOL/L (135-145); THYROID STIMULATING HORMONE 1.01 ulU/ml (0.34-4.50); TOTAL CARBON DIOXIDE 26.2 MMOL/L (24-32); eCRCL 104 ML/MIN; eGFR > 90 ML/MIN
[2023-10-09 18:48] LABS: ETHANOL < 10 MG/DL (<10)
[2023-10-09] MEDS: carVEDilol 3.125mg tablet PO SCH (20:20)
[2023-10-09] MEDS: ROSUVASTATIN CALCIUM 5 MG TABLET PO SCH (20:20)
[2023-10-09] MEDS: mirtazapine 15mg tablet PO SCH (20:21)
[2023-10-09 22:20] LABS: UA COLLECTION TYPE NON-SPECIFIED
[2023-10-09 22:22] LABS: BILIRUBIN,URINE SMALL (Neg); CLARITY,URINE CLOUDY (Clear); GLUCOSE, URINE NEGATIVE (Neg); KETONES,URINE NEGATIVE (Neg); NITRITES, URINE NEGATIVE (Neg); OCCULT BLOOD,URINE LARGE (Neg); PH,URINE 7.5 (4.8-8.0); PROTEIN,URINE 100 mg/dl (Neg); UROBILINOGEN,URINE 0.2 E.U/dL (0.2-1.0)
[2023-10-09 22:23] LABS: LEUKOCYTE ESTERASE ,URINE LARGE (Neg)
[2023-10-09 22:24] LABS: COLOR,URINE YELLOW (Yellow); URINE AMPHETAMINE SCREEN POSITIVE (Neg); URINE BARBITUATE SCREEN NEGATIVE (Neg); URINE BENZODIAZEPINES SCREEN NEGATIVE (Neg); URINE CANNABINOID SCREEN POSITIVE (Neg); URINE COCAINE SCREEN NEGATIVE (Neg); URINE METHADONE SCREEN NEGATIVE (Neg); URINE OPIATE SCREEN NEGATIVE (Neg); URINE PHENCYCLIDINE SCREEN NEGATIVE (Neg)
[2023-10-09 22:30] LABS: BACTERIA,URINE 4+ /HPF (Neg); MUCUS STRANDS NONE SEEN /LPF (Neg); SQUAMOUS EPITHELIAL CELL,UR FEW /LPF (FEW); WBC,URINE TNTC /HPF (0-4)
[2023-10-09 22:32] LABS: WBC CLUMPS,URINE MANY /HPF (NEGATIVE)
[2023-10-09 22:34] LABS: RBC,URINE TNTC /HPF (0-2)
[2023-10-09] MEDS: cephalexin 250mg capsule PO SCH (23:33)
[2023-10-10] MEDS: clopidogrel 75mg tablet PO SCH (13:24)
[2023-10-10] MEDS: tamsulosin 0.4mg capsule PO SCH (13:24)
[2023-10-10 15:00] VITALS: BP 138/91; PULSE 85; RESP 16; TEMP 97.2; O2SAT 96
[2023-10-10] MEDS ORDERED: mag hydrox/Alum hydrox/simeth 30ml oral suspension PO PRN (15:10)
[2023-10-10] MEDS ORDERED: NICOTINE POLACRILEX 2 MG LOZENGE BC PRN (15:10)
[2023-10-10] MEDS ORDERED: loperamide 2mg capsule PO PRN (15:10)
[2023-10-10 16:00] VITALS: RESP 16; O2SAT 96
[2023-10-10 20:00] VITALS: BP 127/82; PULSE 85; RESP 16; TEMP 98.8; O2SAT 95
[2023-10-10] MEDS: magnesium hydroxide 30ml (MOM) UD suspension PO PRN (21:27)
[2023-10-10] MEDS: acetaminophen 325mg tablet PO PRN (21:27)
[2023-10-11 07:00] VITALS: RESP 16; O2SAT 100
[2023-10-11 07:31] LABS: CHOL/HDL RATIO 2.6 (0.00-4.99); CHOLESTEROL 126 MG/DL (0-200); HDL CHOLESTEROL 48 MG/DL (35-60); LDL CHOLESTEROL 57 MG/DL (50-100); TRIGLYCERIDES 46 MG/DL (20-135)
[2023-10-11 07:33] VITALS: BP 128/87; PULSE 65; RESP 16; TEMP 97.1; O2SAT 100
[2023-10-11 07:52] LABS: HEMOGLOBIN A1C 5.9 % (4.5-6.2)
[2023-10-11] MEDS ORDERED: nicotine 21mg patch - 24 hr TD SCH (08:00)
[2023-10-11] MEDS: nicotine 14mg patch - 24hr TD SCH (08:31)
[2023-10-11] MEDS: levoFLOXACIN 500mg tablet PO SCH (14:49)
[2023-10-11 17:06] VITALS: PULSE 79; RESP 19; O2SAT 97
[2023-10-11 20:06] VITALS: BP 93/55; PULSE 80; RESP 16; TEMP 98.3; O2SAT 94
[2023-10-11] MEDS: docusate sod 100mg capsule PO SCH (20:49)
[2023-10-11] MEDS: risperiDONE 0.5mg tablet PO SCH (20:50)
[2023-10-12 08:00] VITALS: PULSE 72; TEMP 98.3
[2023-10-12] MEDS: propranolol 10mg tablet PO SCH (12:59)
[2023-10-12] MEDS: magnesium citrate 296ml oral solution PO ONE (16:44)
[2023-10-12 19:30] VITALS: BP 108/67; PULSE 81; RESP 16; TEMP 98.3; O2SAT 95
[2023-10-12] MEDS: acetaminophen 325mg tablet PO PRN (21:34)
[2023-10-13 07:30] VITALS: RESP 16; O2SAT 99
[2023-10-13 07:53] VITALS: BP 140/81; PULSE 72; RESP 16; TEMP 96.5; O2SAT 99
[2023-10-13 16:03] VITALS: PULSE 72; RESP 18; O2SAT 95
[2023-10-13 19:00] VITALS: RESP 14; O2SAT 97
[2023-10-13 20:00] VITALS: BP 95/53; PULSE 74; RESP 14; TEMP 98.6; O2SAT 97
[2023-10-13] MEDS: Melatonin 3mg tablet PO PRN (20:24)
[2023-10-14 07:30] VITALS: BP 129/89; PULSE 71; RESP 16; TEMP 96.9; O2SAT 98
[2023-10-14 15:48] VITALS: PULSE 75; RESP 19; O2SAT 96
[2023-10-14 19:30] VITALS: BP 141/84; PULSE 72; RESP 14; RESP 18; TEMP 98.4; O2SAT 96; O2SAT 98
[2023-10-15 07:00] VITALS: RESP 12; O2SAT 100
[2023-10-15 08:00] VITALS: BP 118/74; PULSE 60; RESP 12; TEMP 97.5; O2SAT 100
[2023-10-15] MEDS: buPROPion 75mg tablet PO SCH (08:02)
[2023-10-15 11:25] VITALS: PULSE 63; RESP 18; O2SAT 97
[2023-10-15 19:00] VITALS: RESP 18; O2SAT 96
[2023-10-15 20:00] VITALS: BP 99/64; PULSE 77; RESP 18; TEMP 98.2; O2SAT 96
[2023-10-16 07:22] VITALS: RESP 12; O2SAT 100
[2023-10-16 07:31] VITALS: BP 125/87; PULSE 67; RESP 16; TEMP 98.5; O2SAT 97
[2023-10-16 15:59] VITALS: PULSE 73; RESP 14; O2SAT 96
[2023-10-16 19:00] VITALS: RESP 18; O2SAT 94
[2023-10-16 20:00] VITALS: BP 112/68; PULSE 64; RESP 18; TEMP 98.6; O2SAT 94
[2023-10-17 07:00] VITALS: RESP 16; O2SAT 96
[2023-10-17 07:10] VITALS: BP 122/68; PULSE 65; RESP 16; TEMP 97.9; O2SAT 96
[2023-10-17 11:29] VITALS: PULSE 107; RESP 18; O2SAT 93
[2023-10-17 19:00] VITALS: RESP 16; O2SAT 96
[2023-10-17 19:59] VITALS: BP 112/78; PULSE 68; RESP 16; TEMP 99.4; O2SAT 96
[2023-10-18 03:43] VITALS: TEMP 98.4
[2023-10-18 07:14] VITALS: RESP 16; O2SAT 96
[2023-10-18 07:24] VITALS: BP 125/77; PULSE 66; RESP 14; TEMP 97.1; O2SAT 97
[2023-10-18] MEDS ORDERED: NICO-631 TD (12:45)
[2023-10-18] MEDS ORDERED: NICO-907 BC (12:45)
[2023-10-18] MEDS ORDERED: RISP0.5T80 PO (12:45)
[2023-10-18] MEDS ORDERED: ROSU10TA2 PO (12:45)
[2023-10-18] MEDS ORDERED: CLOP75TA34 PO (12:45)
[2023-10-18] MEDS ORDERED: MELA3TAB39 PO (12:45)
[2023-10-18] MEDS ORDERED: BUPR-297 PO (12:45)
[2023-10-18] MEDS ORDERED: CARV3.122 PO (12:45)
[2023-10-18] MEDS ORDERED: PROP10TA10 PO (13:10)
[2023-10-18] MEDS ORDERED: LEVO-65 PO (13:10)
== END 2023-10-18 13:26 | disposition home or self-care (01) | DRG 885 ==
LOC: ER 14:56 → ED HOLD 10-10 13:40 → ADULT MH 10-10 14:52
PROVIDERS: ADMIT Psychiatry & Neurology Psychiatry; ATTEND Psychiatry & Neurology Psychiatry
PROC: GZHZZZZ Group Psychotherapy (ICD-10-PCS; principal; 2023-10-12)
PROC: GZ51ZZZ Individual Psychotherapy, Behavioral (ICD-10-PCS; 2023-10-12)
DX: F32.2 Major depressive disorder, single episode, severe without psychotic features (principal); I11.0 Hypertensive heart disease with heart failure; N39.0 Urinary tract infection, site not specified; R45.851 Suicidal ideations; Z59.00 Homelessness unspecified; F11.10 Opioid abuse, uncomplicated; F15.10 Other stimulant abuse, uncomplicated; E78.00 Pure hypercholesterolemia, unspecified; F17.210 Nicotine dependence, cigarettes, uncomplicated; Z20.822 Contact with and (suspected) exposure to COVID-19; K59.00 Constipation, unspecified; I25.10 Atherosclerotic heart disease of native coronary artery without angina pectoris; J44.9 Chronic obstructive pulmonary disease, unspecified; I50.9 Heart failure, unspecified; N40.0 Benign prostatic hyperplasia without lower urinary tract symptoms; Z79.899 Other long term (current) drug therapy; I25.2 Old myocardial infarction; Z95.5 Presence of coronary angioplasty implant and graft; Z87.440 Personal history of urinary (tract) infections; Z80.3 Family history of malignant neoplasm of breast; Z63.4 Disappearance and death of family member; Z79.02 Long term (current) use of antithrombotics/antiplatelets; Z88.8 Allergy status to other drugs, medicaments and biological substances; F29 Unspecified psychosis not due to a substance or known physiological condition; F25.9 Schizoaffective disorder, unspecified
CPT/HCPCS: 36415; 80048; 80061; 80305; 80320; 81001; 83036; 84443; 85025; 87081; 87811; 94760; 96372; 99285; J1200; J1630; J2060

== ENCOUNTER 2023-10-26 02:57 | Emergency (ER) | payer MEDICARE, MEDICAID ==
[~2023-10-26] VITALS: Ht 167.6 cm; Wt 70.0 kg
[~2023-10-26 02:57] MED LIST changes: +BUPR-297 PO; +CARV3.122 PO; +CLOP75TA34 PO; +LEVO-65 PO; +MELA3TAB39 PO; +NICO-631 TD; +NICO-907 BC; +PROP10TA10 PO; +ROSU10TA2 PO
[2023-10-26 03:14] VITALS: TEMP 98.2
[2023-10-26] MEDS: ibuprofen tablet 400 MG TABLET PO ONE (04:19)
[2023-10-26 04:44] VITALS: BP 144/80; PULSE 70; RESP 20; O2SAT 95
== END 2023-10-26 04:52 | disposition home or self-care (01) ==
LOC: ER 02:58
DX: S23.41XA Sprain of ribs, initial encounter (principal); F15.90 Other stimulant use, unspecified, uncomplicated; F12.90 Cannabis use, unspecified, uncomplicated; Z88.8 Allergy status to other drugs, medicaments and biological substances; Z79.899 Other long term (current) drug therapy; X58.XXXA Exposure to other specified factors, initial encounter; Y93.89 Activity, other specified; Y92.89 Other specified places as the place of occurrence of the external cause; Y99.8 Other external cause status
CPT/HCPCS: 71045; 99283

== ENCOUNTER 2023-10-26 23:11 | Emergency (ER) | payer MEDICARE, MEDICAID ==
[~2023-10-26 23:11] MED LIST changes: -CEPH250C PO; -FLUT16SP NS; -NICO-687 TD; -RISP-32 PO; -TRAZ-251 PO
== END 2023-10-26 23:29 | disposition left against medical advice (07) ==
LOC: ER 23:12
DX: M79.606 Pain in leg, unspecified (principal); Z53.21 Procedure and treatment not carried out due to patient leaving prior to being seen by health care provider